=== PATIENT | male | born 1960 | race Caucasian/White ===

== ENCOUNTER → 2017-01-23 | Outpatient (CLI) | payer OTHER, MEDICAID ==
--- NOTE | 2017-01-26 08:36 | MRI ---
MR left elbow without contrast Indication: Left elbow pain. Comparison: None available Technique: Multiplanar multi sequence imaging through the left elbow without contrast. Findings: Follow-up bone marrow signal is normal. There is enthesopathy at the triceps tendon inserti on. Minimal trochlear and radiocapitellar degenerative change seen with small marginal osteophytes. N o large joint effusion seen. Biceps and brachialis tendons are intact. Common flexor tendon is intact . Medially UCL is intact. There is high signal at the common flexor tendon origin will is best seen o n sagittal image 24 and coronal image 13 and 12. High signal could represent tendinosis or small part ial tear see axial image 23. The Ulnar nerve is normal. Impression: 1. 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 2. Common flexor tendon origin high signal compatible with tendinosis or small partial tear. 3. Triceps tendinosis and other findings as above. Reported By:
== END ==
LOC: RAD 13:57
PROVIDERS: ATTEND Specialist
DX: M19.022 Primary osteoarthritis, left elbow (principal)
CPT/HCPCS: 73221